=== PATIENT | female | born 1935 | race Caucasian/White ===

== ENCOUNTER 2019-12-03 18:39 | Emergency (ER) | payer OTHER ==
[~2019-12-03] VITALS: Ht 157.5 cm; Wt 54.4 kg
[2019-12-03] MEDS ORDERED: HYDROcodone-ACET 5/325MG TAB PO ONE (20:00)
[2019-12-03 20:19] VITALS: BP 159/86
[2019-12-03] MEDS ORDERED: MAGNESIUM CITRATE SOLUTION 300 ML BTL PO ONE (21:00)
== END 2019-12-03 21:22 | disposition home or self-care (01) ==
LOC: ER 18:39
DX: S22.089A Unspecified fracture of T11-T12 vertebra, initial encounter for closed fracture (principal); S32.10XA Unspecified fracture of sacrum, initial encounter for closed fracture; E86.0 Dehydration; K59.01 Slow transit constipation; W18.39XA Other fall on same level, initial encounter; Y93.89 Activity, other specified; Y92.89 Other specified places as the place of occurrence of the external cause; Y99.8 Other external cause status
CPT/HCPCS: 72131

== ENCOUNTER 2021-03-28 18:28 | Emergency (ER) | payer OTHER ==
[~2021-03-28] VITALS: Ht 152.4 cm; Wt 55.3 kg
[2021-03-28 18:28] VITALS: BP 91/53
[2021-03-28 21:20] LABS: Urine Bacteria NONE SEEN /hpf (None Seen); Urine Blood Negative /uL (Negative); Urine Specific Gravity 1.019 (1.001-1.035); Urine WBC 280 /hpf (0 - 5); Urine WBC Clumps PRESENT /hpf (None Seen)
[2021-03-28] MEDS ORDERED: CIPROFLOXACIN HCL 500 MG TAB PO ONE (22:00)
== END 2021-03-28 22:00 | disposition home or self-care (01) ==
LOC: ER 18:28
DX: N39.0 Urinary tract infection, site not specified (principal)
CPT/HCPCS: 81001